=== PATIENT | male | born 1950 | race Hispanic/Latino ===

== ENCOUNTER → 2025-09-29 | Outpatient (CLI) | payer MEDICARE ==
[~2025-09-29] MED LIST: IOHEXOL 350 MG/ML 100ML INFUS..BTL IV ONE; IOHEXOL-350 50ML VIAL IV ONE
--- NOTE | 2025-09-30 10:09 | HMCIMG ---
EXAMINATION: CT ANGIOGRAM OF ABDOMEN AND PELVIS AND RUNOFFS OF THE BILATERAL LOWER EXTREMITIES. CLINICAL HISTORY: Peripheral vascular disease, unspecified COMPARISON: None provided. TECHNIQUE: MDCT angiogram of the abdominal aortic vessels was performed after administration of intravenous contrast. FINDINGS: Abdominal aorta is normal in size and caliber. There are atheromatous wall calcification of the aorta, its branches, iliac arteries, and both lower limb arteries. 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 The celiac and superior mesenteric arteries, are normal in caliber. There is no stenosis or occlusion. Bilateral renal arteries are normal in caliber. There is no stenosis or occlusion. The inferior mesenteric artery is normal in caliber. Bifurcation morphology is normal. There is no stenosis or occlusion. There is high-grade stenosis of the bilateral internal iliac arteries. Right common iliac artery stent in situ and is patent. There are sutures along the right common femoral artery causing 80-90% luminal narrowing. Multilevel short segment narrowing of the bilateral superficial femoral arteries causing 70-80% stenosis in the distal segment. The bilateral common iliac arteries are normal in caliber. No stenosis or occlusion. The bilateral external iliac arteries are normal in caliber. There is no stenosis or occlusion. The bilateral profunda femoris and popliteal arteries are normal in size and caliber. There is no stenosis or occlusion. There is narrow caliber flow in both tibioperoneal arteries. Within the abdomen and pelvis, there are multiple hepatic cysts; 3.8 x 2.8 cm heterogeneous lesion in segment V needs MRI correlation; surgically absent gallbladder; mildly dilated extrahepatic bile duct; there are bilateral renal cortical cysts; pancreas, spleen, adrenal glands are within normal limits; there are colonic diverticula; rest of the bowel loops are normal in caliber without evidence of obstruction, ileus, or bowel wall thickening, and the appendix is normal; and urinary bladder, prostate, and seminal vesicles appear normal in caliber. The included chest reveals subpleural ground glassing with interseptal thickening in both lower lobes. There is multilevel mild degenerative spondylosis of the spine. 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 3.8 x 2.8 cm heterogeneous hepatic lesion in segment V. Liver protocol MRI is recommended. /Bishop
== END | disposition home or self-care (01) ==
LOC: RAH 08:30
PROVIDERS: ATTEND Internal Medicine Cardiovascular Disease
DX: I73.9 Peripheral vascular disease, unspecified (principal); I51.3 Intracardiac thrombosis, not elsewhere classified; K57.30 Diverticulosis of large intestine without perforation or abscess without bleeding; I70.0 Atherosclerosis of aorta; N28.1 Cyst of kidney, acquired
CPT/HCPCS: 75635; Q9967 ×2